=== PATIENT | female | born 1960 | race Caucasian/White ===

== ENCOUNTER 2017-11-08 10:38 | Outpatient (CLI) | payer BC | END 2017-11-08 10:39 | disposition home or self-care (01) | LOC: CTENTCT 10:38 | PROVIDERS: ATTEND Specialist | DX: J32.9 Chronic sinusitis, unspecified (principal) | CPT/HCPCS: 70486 ==

== ENCOUNTER 2018-02-22 12:43 | Outpatient (CLI) | payer BC ==
--- NOTE | 2018-02-22 15:11 | MMO ---
BILATERAL SCREENING MAMMOGRAM 02/22/18 COMPARISON: 01/16/14, 5, 02/11/17 HISTORY: 54-year-old female. Routine screening mammography. FINDINGS: CC and MLO views of both breasts are submitted for interpretation. This patient's mammogram is review ed with the assistance of computer aided detection. FINDINGS: The breasts are composed of extremely dense fibroglandular tissue which limits the sensitivity of the mammography in the detection of underlying malignancy. Bilaterally, no suspicious dominant mass, architectural distortion or suspicious calcification. IMPRESSION: BIRADS 1: Negative Routine annual screening mammography (for women over age 40) POS: [facility]
== END 2018-02-22 12:44 | disposition home or self-care (01) ==
LOC: SCSMAMMO 12:43
PROVIDERS: ATTEND Family Medicine
DX: Z12.31 Encounter for screening mammogram for malignant neoplasm of breast (principal)
CPT/HCPCS: 77067

== ENCOUNTER 2020-05-07 10:52 | Outpatient (CLI) | payer BC | END 2020-05-07 10:53 | disposition home or self-care (01) | LOC: DTY/OP 10:52 | PROVIDERS: ATTEND Student in an Organized Health Care Education/Training Program | DX: E03.9 Hypothyroidism, unspecified (principal) | CPT/HCPCS: 97802 ==

== ENCOUNTER 2023-06-23 16:00 | Outpatient (CLI) | payer BC | END 2023-06-23 16:01 | disposition home or self-care (01) | LOC: SLEEPLAB 16:00 | PROVIDERS: ATTEND Internal Medicine | DX: G47.33 Obstructive sleep apnea (adult) (pediatric) (principal) | CPT/HCPCS: 95800 ==

== ENCOUNTER 2023-12-17 09:22 | Outpatient (CLI) | payer BC | END 2023-12-17 09:23 | disposition home or self-care (01) | LOC: BICRAD 09:22 | PROVIDERS: ATTEND Nurse Practitioner Family | DX: M25.531 Pain in right wrist (principal); M79.89 Other specified soft tissue disorders ==

== ENCOUNTER 2024-02-17 08:09 | Outpatient (CLI) | payer BC | END 2024-02-17 08:10 | disposition home or self-care (01) | LOC: BICRAD 08:09 | PROVIDERS: ATTEND Family Medicine | DX: J18.9 Pneumonia, unspecified organism (principal); R91.8 Other nonspecific abnormal finding of lung field | CPT/HCPCS: 71046 ==